=== PATIENT | female | born 2000 ===

== ENCOUNTER 2021-01-03 18:11 | Inpatient (IN) | payer OTHER ==
[~2021-01-03] VITALS: Ht 160 cm; Wt 93.9 kg
[2021-01-04] MEDS ORDERED: PRENATAL + DHA1 EAC1 PO (08:23)
== END 2021-01-06 14:40 | disposition home or self-care (01) | DRG 807 ==
LOC: LDR 18:11 → OB/GYN 18:11 → SURG-SUITE 01-04 04:56 → OB/GYN 01-04 05:46
PROVIDERS: ADMIT Specialist; ATTEND Specialist
PROC: 4A1HXFZ Monitoring of Products of Conception, Cardiac Rhythm, External Approach (ICD-10-PCS; 2021-01-03)
PROC: 10E0XZZ Delivery of Products of Conception, External Approach (ICD-10-PCS; principal; 2021-01-04)
PROC: 0W8NXZZ Division of Female Perineum, External Approach (ICD-10-PCS; 2021-01-04)
DX: O80 Encounter for full-term uncomplicated delivery (principal); Z37.0 Single live birth; Z3A.39 39 weeks gestation of pregnancy; Z20.822 Contact with and (suspected) exposure to COVID-19

== ENCOUNTER → 2021-02-21 | Emergency (ER) | payer OTHER ==
[~2021-02-21] VITALS: Ht 162.6 cm; Wt 81.6 kg
[~2021-02-21] MED LIST: PRENATAL + DHA1 EAC1 PO
== END | disposition home or self-care (01) ==
LOC: ER 11:49
DX: J32.8 Other chronic sinusitis (principal); J03.90 Acute tonsillitis, unspecified; Z03.818 Encounter for observation for suspected exposure to other biological agents ruled out